=== PATIENT | male | born 1960 | race African-American/Black ===

== ENCOUNTER 2017-04-13 21:01 | Emergency (ER) | payer BC, OTHER ==
[~2017-04-13] VITALS: Ht 177.8 cm; Wt 117.9 kg
[~2017-04-13 21:01] MED LIST: NKM
--- NOTE | 2017-04-13 21:15 | Emergency Room Report ---
History of Present Illness General Chief Complaint: Syncope Source: Patient Present Illness HPI Is a 26-year-old male with no past medical history. He presents with chief complaint of syncope. He was at a bar drinking. He said he hasn't eaten very much today. He got to the bathroom got lightheaded had a syncopal episode. Witnessed by his friend. No trauma. Castine better now. Per EMS blood pressure was systolic in the 90s. He received IV fluid and fell better now. No nausea no vomiting. No chest pain. No palpitation. No other symptom. Never had this problem before. Allergies: Coded Allergies: No Known Allergies (Unverified , 04/13/17) Patient History Past Medical History: none, see triage record, old chart reviewed Past Surgical History: none Social History: Reports: alcohol use, Denies: smoking Immunizations: other Reviewed Nursing Documentation: PMH: Agreed, PSxH: Agreed Nursing Documentation-PMH Past Medical History: No Stated History Review of Systems Eye: Denies: blurred vision, eye pain ENT: Denies: ear pain, nose congestion, throat swelling Respiratory: Denies: cough, shortness of breath Cardiovascular: Denies: chest pain, palpitations Gastrointestinal: Denies: abdominal pain, diarrhea, nausea, vomiting Musculoskeletal: Denies: back pain, joint pain Skin: Denies: rash Neurological: Denies: headache, numbness Endocrine: Denies: increased thirst, increased urine Hematologic/Lymphatic: Denies: easy bruising All Other Systems: negative except mentioned in HPI Physical Exam Vital Signs Date Time Temp Pulse Resp B/P Pulse Ox O2 Delivery O2 Flow Rate FiO2 04/13/17 20:55 98.6 86 16 114/72 98 Room Air vitals normal Sp02 EP Interpretation: reviewed, normal General Appearance: well appearing, no apparent distress, alert Head: normocephalic, atraumatic Eyes: bilateral eye EOMI, bilateral eye PERRL ENT: hearing grossly normal, normal pharynx Neck: full range of motion, supple, no meningismus Respiratory: chest non-tender, lungs clear, normal breath sounds Cardiovascular #1: regular rate, rhythm, no murmur Gastrointestinal: normal bowel sounds, non tender, no mass, no organomegaly, no bruit, non-distended Musculoskeletal: back normal, gait/station normal, normal range of motion Psychiatric: mood/affect normal Skin: warm/dry Medical Decision Making Diagnostic Impression: Primary Impression: Syncope Qualified Codes: R55 - Syncope and collapse ER Course Patient presents with syncope. Most likely vasovagal. Castine better now. We'll discharge home after EKG an IV fluid. No evidence of arrhythmia or TIA/CVA. No seizure activity. Last Vital Signs Date Time Temp Pulse Resp B/P Pulse Ox O2 Delivery O2 Flow Rate FiO2 04/13/17 20:55 98.6 86 16 114/72 98 Room Air Status: improved Disposition: HOME, SELF-CARE Condition: Stable Patient Instructions: Syncope Additional Instructions: Abstain from drinking to excess. Followup with your Dr. in 2-5 days if not better. Return if symptom worsen. Eat and drink regularly. REJI COLE M.D. Apr 13, 2017 21:15
[2017-04-13 21:51] VITALS: BP 109/55
[2017-04-13 22:25] VITALS: BP 109/64
== END 2017-04-13 21:58 | disposition home or self-care (01) ==
LOC: EDBD 21:01 → EMR 21:30
DX: R55 Syncope and collapse (principal)
CPT/HCPCS: 93005; 96374